=== PATIENT | female | born 2000 | race Two or more races ===

== ENCOUNTER 2023-08-04 17:59 | Emergency (ER) | payer MEDICAID ==
[~2023-08-04] VITALS: Ht 157.5 cm; Wt 49.1 kg
[2023-08-04] MEDS ORDERED: DICYCLOMINE HCL (10MG/ML) 2 ML AMPULE IM ONE (18:30)
[2023-08-04 18:43] VITALS: BP 108/70; PULSE 94; RESP 16; TEMP 98.3; O2SAT 100
[2023-08-04 19:09] LABS: Urine Epithelial Cast None Seen /hpf (<5)
[2023-08-04 19:16] LABS: Urine Bacteria FEW /hpf (None Seen); Urine Blood Negative /uL (Negative); Urine Clarity Clear (Clear); Urine Color Colorless (Yellow); Urine Protein, UAD Negative (Negative); Urine Specific Gravity 1.019 (1.001-1.035); Urine Urobilinogen Normal (Negative); Urine WBC 1 /hpf (0 - 5); Urine pH 6.5 (5.0-8.0)
[2023-08-04] MEDS ORDERED: SODIENE35 RE (20:52)
[2023-08-04] MEDS ORDERED: LACT10SO3 PO (20:52)
[2023-08-04] MEDS ORDERED: DOCU-94 PO (20:52)
== END 2023-08-04 21:09 | disposition home or self-care (01) ==
LOC: ER 17:59
DX: K59.00 Constipation, unspecified (principal); Z32.02 Encounter for pregnancy test, result negative
CPT/HCPCS: 74018; 81001; 81025; 96372; 99284; J0500